=== PATIENT | female | born 1980 | race Caucasian/White ===

== ENCOUNTER 2017-03-14 04:57 | Emergency (ER) | payer BC, MEDICAID ==
[~2017-03-14] VITALS: Ht 162.6 cm; Wt 70.3 kg
[2017-03-14] MEDS ORDERED: METOCLOPRAMIDE HCL 10 MG/2 ML VIAL IVP ONE (05:00)
[2017-03-14] MEDS ORDERED: NACL 0.9% 1,000 ML IV ONE (05:00)
[2017-03-14 05:02] VITALS: BP_SYST 160
[2017-03-14 05:34] LABS: BASOPHILS # (AUTO) 0.1 K/uL (0.0-0.2); BASOPHILS % (AUTO) 0.5 % (0.0-2.0); BILIRUBIN,URINE NEGATIVE (NEGATIVE); BLOOD, URINE NEGATIVE (NEGATIVE); CLARITY/URINE CLOUDY (CLEAR); COLOR,URINE YELLOW (YELLOW); EOSINOPHILS # (AUTO) 0.1 K/uL (0.0-0.4); EOSINOPHILS % (AUTO) 0.5 % (0.0-4.0); GLUCOSE,URINE NEGATIVE (NEGATIVE); HEMATOCRIT 41.1 % (36-48); HEMOGLOBIN 13.8 g/dL (12.0-16.0); KETONES,URINE NEGATIVE (NEGATIVE); LEUKOCYTE ESTERASE ,URINE 1+ (NEGATIVE); LYMPHOCYTES # (AUTO) 2.6 K/uL (1.0-5.5); LYMPHOCYTES % (AUTO) 19.1 % (20.5-51.5); MEAN CORPUSCULAR HEMOGLOBIN 30 pg (27-31); MEAN CORPUSCULAR HGB CONC 34 % (32-36); MEAN CORPUSCULAR VOLUME 90 fL (79.0-98.0); MONOCYTES # (AUTO) 0.6 K/uL (0.0-1.0); MONOCYTES % (AUTO) 4.3 % (1.7-9.3); NEUTROPHILS % (AUTO) 75.6 % (40.0-70.0); NITRITE, URINE NEGATIVE (NEGATIVE); PH,URINE 7.5 (5.0-8.0); PLATELET COUNT (AUTO) 352 K/uL (130-430); PROTEIN URINE NEGATIVE (NEGATIVE); RED BLOOD CELL COUNT(AUTO) 4.58 MIL/uL (4.2-6.2); RED CELL DISTRIBUTION WIDTH 12.9 % (9.0-15.0); UROBILINOGEN,URINE 0.2 (0.2-1.0); WHITE BLOOD COUNT (AUTO) 13.4 K/uL (4.8-10.8)
[2017-03-14 05:39] LABS: CALCIUM 8.3 mg/dL (8.4-11.0); CREATININE 0.64 mg/dL (0.55-1.30); POTASSIUM 3.7 mmol/L (3.5-5.1)
[2017-03-14] MEDS ORDERED: ACETAMINOPHEN 500 MG TABLET PO ONE (05:45)
[2017-03-14 05:51] LABS: BACTERIA,URINE MODERATE /HPF (None Seen); MUCUS,URINE None Seen /LPF (None Seen); RBC,URINE 0-3 /HPF (0-3); URINE AMORPHOUS PHOSPHATES 3+ /HPF (None Seen)
[2017-03-14 06:04] LABS: ALBUMIN 2.9 g/dL (3.4-4.8); TOTAL BILIRUBIN 0.3 mg/dL (0.0-1.0); TOTAL PROTEIN, SERUM 6.8 g/dL (6.4-8.3)
[2017-03-14 06:45] VITALS: BP_SYST 158
== END 2017-03-14 06:44 | disposition home or self-care (01) ==
LOC: SED 04:57
DX: O23.42 Unspecified infection of urinary tract in pregnancy, second trimester (principal); O16.2 Unspecified maternal hypertension, second trimester; Z3A.14 14 weeks gestation of pregnancy
CPT/HCPCS: 36415; 76815; 80053; 81000; 81025; 83690; 84702; 85025; 87086; 96361; 96374; 99285; J2765; J7030

== ENCOUNTER 2017-06-04 06:59 | Emergency (ER) | payer MEDICAID ==
[~2017-06-04] VITALS: Ht 162.6 cm; Wt 73.9 kg
--- NOTE | 2017-06-04 07:05 | NUR ---
ER at bedside examining patient.
[2017-06-04] MEDS ORDERED: PREDNISONE 20 MG TABLET PO ONE (07:15)
[2017-06-04] MEDS ORDERED: ALBUTEROL SULFATE 0.083% 2.5 MG/3 ML VIAL.NEB IH ONE (07:15)
[2017-06-04] MEDS ORDERED: IPRATROPIUM BROM 0.5 MG/2.5 ML VIAL.NEB (ATROVENT) IH ONE (07:15)
--- NOTE | 2017-06-04 07:15 | NUR ---
RT at bedside
--- NOTE | 2017-06-04 07:15 | NUR ---
Pt to ER room ER 6. Pt states that she's unable to sleep r/t C/P, SOB with dry cough x 3 days.
[2017-06-04 07:16] VITALS: BP_SYST 143
--- NOTE | 2017-06-04 07:19 | NUR ---
Pt came in with SOB while laying down, and sometimes after standing up, also has heartburn. Pt is 26 weeks and was cleared from OB and sent to the ER. Pt denies pain, n/v or fever.Pt is able to communicate with no problems. No other injuries/complaints per pt or noted.
--- NOTE | 2017-06-04 08:09 | NUR ---
Patient given written and verbal discharge instructions and verbalizes understanding. ER MD discussed with patient the results and treatment provided. Patient in stable condition. ID arm band removed. No Rx given. Patient educated on pain management and to follow up with PMD. Pain Scale 1. Opportunity for questions provided and answered.
[2017-06-04 08:11] VITALS: BP_SYST 146
== END 2017-06-04 08:09 | disposition home or self-care (01) ==
LOC: EDSTATUS 06:59 → SED 07:00
DX: O99.512 Diseases of the respiratory system complicating pregnancy, second trimester (principal); R06.02 Shortness of breath; R12 Heartburn; Z3A.26 26 weeks gestation of pregnancy
CPT/HCPCS: 94640; 99283; J7512; 99284